=== PATIENT | female | born 1940 | race American Indian/Alaskan Native ===

== ENCOUNTER 2017-07-31 09:01 | Outpatient (CLI) | payer MEDICARE ==
--- NOTE | 2017-07-31 11:05 | XRay Report ---
Right wrist 3 views. History: Right wrist pain. Findings: There are no fractures or other acute findings. A small spur is seen arising from the lateral aspect of the navicular bone. Impression: No acute findings.
== END 2017-07-31 09:02 | disposition home or self-care (01) ==
LOC: SPVIMAG 09:01
PROVIDERS: ATTEND Orthopaedic Surgery Sports Medicine
DX: M25.831 Other specified joint disorders, right wrist (principal)